=== PATIENT | male | born 1940 | race Caucasian/White ===

== ENCOUNTER 2018-02-06 13:03 | Day surgery (SDC) | payer OTHER ==
[~2018-02-06] VITALS: Ht 177.8 cm; Wt 97.8 kg
[~2018-02-06 13:03] MED LIST: 00186-0370-20 IH; ASPIRIN 81M81 MG/TA2 PO; DESYREL 100MG100 MG PO; FLOMAX 0.40.4 MG/CAP PO; FLORANEX PO; INDERAL 10MG10 MG PO; LANTUS100 U/ML SC; MULTI-VITAMIN W1 TA1 PO; NOVOLOG FLEX100 U/ML SQ; PRILOSEC 20MG20 MG PO; PRINIVIL20 MG PO; PROAIR HFA0.09 MG/AC IH; PROSCAR 5MG5 MG PO; RT SPIRIVA18 MCG IH; VITAMIN D31000 IU PO
[2018-02-06 13:47] VITALS: BP 114/62; PULSE 77; TEMP 97.9
[2018-02-06] MEDS ORDERED: PRINIVIL2.5 MG PO (14:04)
[2018-02-06] MEDS ORDERED: SINGULAIR 110 MG/TAB PO (14:05)
[2018-02-06] MEDS ORDERED: LANTUS100 U/ML SQ (14:17)
[2018-02-06] MEDS ORDERED: ASPIRIN E.C. 8181 MG PO (14:18)
[2018-02-06] MEDS ORDERED: LASIX 40MG TABL40 MG PO (14:19)
[2018-02-06] MEDS ORDERED: ZETIA 10MG TAB10 MG PO (14:19)
[2018-02-06] MEDS ORDERED: MUCUS RELIEF400 M1 PO (14:20)
[2018-02-06] MEDS ORDERED: VITAMIN D31000 IU PO (14:21)
[2018-02-06] MEDS ORDERED: COREG 6.256.25 MG/TA PO (14:23)
[2018-02-06] MEDS ORDERED: BRILINTA90 MG PO (14:26)
[2018-02-06] MEDS ORDERED: MINIPRESS 1M1 MG/CAP PO (14:27)
[2018-02-06] MEDS ORDERED: K-DUR 10 MEQ T10 MEQ PO (14:29)
[2018-02-06] MEDS ORDERED: STRIVERDI2.5 MCG/Ac IH (14:30)
[2018-02-06] MEDS ORDERED: IPRATROPIUM BROM3 M1 IH (14:31)
[2018-02-06] MEDS ORDERED: PROVENTIL0.09 MG/A1 IH (14:32)
[2018-02-06 15:10] VITALS: BP 107/62; PULSE 75; TEMP 97.9
[2018-02-06 15:25] VITALS: BP 108/53; PULSE 73
[2018-02-06 15:40] VITALS: BP 95/53; PULSE 69
== END 2018-02-06 16:10 | disposition home or self-care (01) ==
LOC: SDCO 13:03
DX: K21.9 Gastro-esophageal reflux disease without esophagitis (principal); R93.3 Abnormal findings on diagnostic imaging of other parts of digestive tract; I10 Essential (primary) hypertension; E78.00 Pure hypercholesterolemia, unspecified; G47.33 Obstructive sleep apnea (adult) (pediatric); J43.9 Emphysema, unspecified; E11.9 Type 2 diabetes mellitus without complications; Z79.82 Long term (current) use of aspirin; Z79.4 Long term (current) use of insulin; Z86.010 Personal history of colon polyps
CPT/HCPCS: J2250; J3010; J7030